=== PATIENT | female | born 1990 | race Caucasian/White ===

== ENCOUNTER → 2021-11-03 | Outpatient (CLI) | payer OTHER ==
--- NOTE | 2021-11-03 17:31 | RAD ---
INDICATION: Reason: HEAVY BLEEDING / Spl. Instructions: / History: COMPARISON: None. TECHNIQUE: Grayscale and color ultrasound images uterus and adnexa. Transabdominal and transvaginal images obtained. Transvaginal images were needed to better visualize structures that were limited on transabdominal imaging. FINDINGS: Uterus: 103 x 60 x 46 mm. 9 mm endometrial stripe Right Ovary: 27 x 17 x 14 mm. Left Ovary: 32 x 22 x 17 mm. Vascular flow identified to bilateral ovaries. Nabothian cyst formation. Heterogenous appearance of the uterus. Small free fluid. Possible collapsing cyst at the left ovary. IMPRESSION: * Vascular flow seen to the ovaries. * Heterogeneity of the uterus. Fibroids not excluded given this heterogeneity. Electronically signed by: Rishi Henry MD (11/03/2021 5:29 PM) [id number]
== END ==
LOC: US 11:11
PROVIDERS: ATTEND Physician Assistant
DX: N88.8 Other specified noninflammatory disorders of cervix uteri (principal)
CPT/HCPCS: 76830; 76856